=== PATIENT | female | born 1975 | race African-American/Black ===

== ENCOUNTER 2019-06-19 11:05 | Emergency (ER) | payer SELFPAY ==
[~2019-06-19] VITALS: Ht 139.7 cm; Wt 54.8 kg
[2019-06-19] MEDS ORDERED: ONDANSETRON 2MG/ML, 2ML IVPush ONE (11:30)
[2019-06-19] MEDS ORDERED: SODIUM CHLORIDE FLUSH 10ML SYR IVF ONE (11:30)
--- NOTE | 2019-06-19 11:30 | NUR ---
FIRST CONTACT WITH PT. 1 WEEK AGO NOTICED 2 BOILS ABOVE SCAR. DESCRIBED HARD KNOTS CAUSIG LOWER ABD PAIN. ALSO HAVING VOMITING THIS AM. PT DENIES ANY URINARY SX. PT'S AOX4. RESPS EVEN AND UNLABORED. BP/SPO2 MONITORS IN PLACE. CALL LIGHT WITHIN REACH. PA AT BEDSIDE TO EVALUATE AT THIS TIME.
[2019-06-19] MEDS ORDERED: ONDANSETRON 2MG/ML, 2ML ONE (11:33)
[2019-06-19] MEDS ORDERED: MORPHINE SULFATE 4 MG/ML, 1ML ONE ×2 (11:34→12:55)
[2019-06-19] MEDS: MORPHINE SULFATE 4 MG/ML, 1ML IVPush PRN ×2 (11:54→12:59)
--- NOTE | 2019-06-19 11:56 | NUR ---
PT AMB TO BR AND BACK TO ROOM WITH STEADY GAIT. URINE COLLECTED AND SENT.
--- NOTE | 2019-06-19 11:56 | NUR ---
PT MEDICATED PER EMAR. PT TOLERATED WELL.
[2019-06-19] MEDS ORDERED: LIDOCAINE 1%-EPI 1:100K, 20ML SQ ONE (12:00)
[2019-06-19] MEDS ORDERED: LIDOCAINE 1%-EPI 1:100K, 20ML ONE (12:10)
[2019-06-19 12:22] LABS: ALBUMIN 4.4 g/dL (3.4-5.0); ANION GAP 9 mmol/L (5-15); CALCIUM 9.4 mg/dL (8.5-10.1); CHLORIDE 105 mmol/L (98-107); CREATININE 0.78 mg/dL (0.55-1.02)
[2019-06-19 12:26] LABS: CULTURE INDICATED? YES; MICROSCOPIC INDICATED
[2019-06-19 12:27] LABS: MEAN CORPUSCULAR HEMOGLOBIN 27.5 pg (27.0-34.8); MEAN CORPUSCULAR HGB CONC 31.6 g/dL (32.4-35.8); MEAN CORPUSCULAR VOLUME 87.1 fL (80-100); MEAN PLATELET VOLUME 8.6 fL (7.4-10.4); PLATELET COUNT 279 x10^3/uL (130-400); RED BLOOD COUNT 4.04 x10^6/uL (3.82-5.3); RED CELL DISTRIBUTION WIDTH 16.7 % (9.6-15.2)
[2019-06-19 12:48] LABS: BASOPHILS # (AUTO) 0.01 x10^3/uL (0-0.1); BASOPHILS % (AUTO) 0 % (0-1); EOSINOPHILS # (AUTO) 0.01 x10^3/uL (0-0.4); EOSINOPHILS % (AUTO) 0 % (1-7); LYMPHOCYTES # (AUTO) 0.95 x10^3/uL (1-3.4); LYMPHOCYTES % (AUTO) 10 % (22-44); MD SCAN; MONOCYTES # (AUTO) 0.24 x10^3/uL (0.2-0.8); MONOCYTES % (AUTO) 3 % (2-9); NEUTROPHILS # (AUTO) 8.03 x10^3/uL (1.8-6.8); NEUTROPHILS % (AUTO) 87 % (42-75)
[2019-06-19 13:15] VITALS: BP 131/92
--- NOTE | 2019-06-19 13:21 | NUR ---
Patient given discharge instructions and they have confirmed that they understand the instructions. Patient ambulatory with steady gait.
== END 2019-06-19 13:26 | disposition home or self-care (01) ==
LOC: ED 12:24
DX: N30.00 Acute cystitis without hematuria (principal); L02.211 Cutaneous abscess of abdominal wall
CPT/HCPCS: 10060; 36415; 80048; 81001; 82040; 84703; 85025; 87077; 87086; 96374; 96375; 96376; 99285; J2270; J2405; 87186

== ENCOUNTER 2019-06-22 12:30 | Emergency (ER) | payer SELFPAY ==
[~2019-06-22] VITALS: Ht 139.7 cm; Wt 54.7 kg
[2019-06-22 12:59] VITALS: BP 145/82
--- NOTE | 2019-06-22 15:20 | NUR ---
report from jessica ling Wound cleansed with sterile saline then small burrowing wound dressed by Provider with 1inch of 1/4 regular packing, then band aid
--- NOTE | 2019-06-22 15:23 | NUR ---
REPORT GIVEN TO HERIBERTO CALDERON.
== END 2019-06-22 16:01 | disposition home or self-care (01) ==
LOC: ED 14:39
DX: S30.821A Blister (nonthermal) of abdominal wall, initial encounter (principal); Z48.01 Encounter for change or removal of surgical wound dressing; X58.XXXA Exposure to other specified factors, initial encounter; Y93.89 Activity, other specified; Y92.89 Other specified places as the place of occurrence of the external cause; Y99.8 Other external cause status
CPT/HCPCS: 99282